=== PATIENT | female | born 1985 | race Caucasian/White ===

== ENCOUNTER 2017-01-07 14:52 | Outpatient (CLI) | payer MEDICAID, OTHER ==
[~2017-01-07] VITALS: Ht 167.6 cm; Wt 84.1 kg
[2017-01-07 14:56] VITALS: BP 116/58
[2017-01-07] MEDS ORDERED: PREN1TAB60 PO (15:21)
== END 2017-01-07 16:35 | disposition home or self-care (01) ==
LOC: LDOP 14:52
PROVIDERS: ATTEND Obstetrics & Gynecology
DX: O26.893 Other specified pregnancy related conditions, third trimester (principal); R10.9 Unspecified abdominal pain; Z3A.29 29 weeks gestation of pregnancy
CPT/HCPCS: 59025; 99201; G0463